=== PATIENT | female | born 1960 | race Caucasian/White ===

== ENCOUNTER → 2017-06-04 | Outpatient (CLI) | payer OTHER ==
[2016-09-11 06:31] VITALS: BP 130/62
--- NOTE | 2017-06-06 08:24 | MRI ---
MRI left knee without contrast Indication: Left knee pain and swelling Technique: Multiplanar, multi sequence imaging of the left knee without IV contrast administration. Findings: The extensor mechanism is intact. The patella demonstrates high chondromalacia of the later al patellar articular cartilage. There is increased lateral tilting of the patella with a hypoplastic femoral trochlear sulcus. The medial and lateral retinacular complexes are intact; however, there is moderate edema within the femoral attachment of the medial patellofemoral ligament for example on co vance image 18 and axial image 14. The tibial tuberosity to trochlear groove distance is 2.2 cm. Smal l suprapatellar joint effusion. There is a small popliteal fossa cyst. The popliteus muscle and tendo n are normal. The pes anserine tendons are also within normal limits. Bone marrow signal is heterogeneous however there is no localizing marrow signal abnormality identifi ed within the left knee. The medial femorotibial compartment demonstrates high-grade near full-thickness cartilage thinning se en within the femoral articular cartilage on sagittal image 18 which measures approximately 10 mm in AP dimension. There is small amount of subchondral bone marrow edema within the medial most aspect of the medial femoral condyle and tibial plateau. Moderate-sized surface osteophytes are noted. The lat eral femorotibial compartment demonstrates diffuse chondral thinning and mild chondromalacia with sma ll surface osteophytes and small amount of subchondral bone marrow edema within the lateral tibial pl ateau. No full-thickness cartilage loss is identified. Additionally there is moderate degenerative ch sharona with subcortical cyst formation within the proximal fibula and tib-fib joint. Mucoid degeneration of the ACL without tear. The PCL is intact. The superficial MCL demonstrates leyda a both deep and superficial to the ligament without thickening of the ligament consistent a grade 2 s prain. There is heterogeneous intermediate signal within the meniscal femoral and tibial ligaments al so consistent with acute sprain. The fibular collateral ligament, biceps femoris and iliotibial band are intact. The medial meniscus demonstrates undersurface irregularity and increased signal within th e posterior horn and body seen best on sagittal image 15 and coronal image 23 suspected to represent ing nondisplaced horizontal tear/severe fraying. The lateral meniscus demonstrates no evidence of men iscal tear. Impression: 1. Grade 2 sprain of the superficial MCL along with acute sprain of the meniscofemoral and meniscotib ial ligaments. 2. Intermediate signal extending to the undersurface of the medial meniscal body and posterior horn m ost consistent with undersurface tear/severe fraying. 3. Moderate medial femorotibial compartment osteoarthrosis with focal high-grade cartilage thinning m easuring approximately 1 cm in AP dimension involving the femoral articular cartilage. 4. Mild patellofemoral and mild to moderate lateral femorotibial compartment osteoarthrosis in additi on to moderate degenerative change of the proximal tib-fib joint. 5. 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 The medial patellofemoral ligament edema and adjacen t subcortical edema within the medial femoral condyle suggests an acute or chronic ligamentous injury . Reported By:
== END | disposition home or self-care (01) ==
LOC: RAD 12:33
PROVIDERS: ATTEND Specialist
DX: M17.12 Unilateral primary osteoarthritis, left knee (principal); Q72.892 Other reduction defects of left lower limb; S83.8X2A Sprain of other specified parts of left knee, initial encounter; X58.XXXA Exposure to other specified factors, initial encounter
CPT/HCPCS: 73721

== ENCOUNTER 2018-02-12 08:12 | Inpatient (IN) ==
[~2018-02-12 08:12] MED LIST: ANCEF 1 GRAM IV PREMIX* 1 G/50 ML BAG IV ONE; D5 LR 1000 ML 1,000 ML IV ONE
[2018-02-12 08:54] VITALS: BMI 32.3
[2018-02-12] MEDS ORDERED: NAROPIN 0.75% EPI ONE (09:06)
[2018-02-12] MEDS ORDERED: FENTANYL INJ 250 mcg ONE (09:06)
[2018-02-12] MEDS ORDERED: FENTANYL INJ 100 mcg ONE ×4 (10:20→11:39)
[2018-02-12] MEDS ORDERED: LR 1000 ML IV 1,000 ML IV ONE (10:44)
[2018-02-12] MEDS ORDERED: DILAUDID INJ ONE ×2 (10:54→12:47)
[2018-02-12] MEDS: BACITRACIN IR PRN ×6 (11:55→12:00)
[2018-02-12] MEDS: NS IRRIGATION IR PRN ×6 (11:55→12:00)
[2018-02-12] MEDS: [UNRECOGNIZED DRUG - OTHER] IR PRN ×6 (11:55→12:00)
[2018-02-12] MEDS ORDERED: NS IV NR ×5 (12:00)
[2018-02-12] MEDS: MORPHINE SULFATE IV NR ×10 (12:00→15:48)
[2018-02-12] MEDS: MARCAINE IV NR ×10 (12:00→15:48)
[2018-02-12] MEDS ORDERED: NS 1000 ML 20 ML, MARCAINE 0.5% 20 ML IV NR ×2 (12:00)
[2018-02-12] MEDS: [UNRECOGNIZED DRUG - OTHER] IV NR ×10 (12:00→15:48)
[2018-02-12] MEDS ORDERED: [UNRECOGNIZED DRUG - OTHER] IV NR ×5 (12:00)
[2018-02-12] MEDS ORDERED: MARCAINE IV NR ×5 (12:00)
[2018-02-12] MEDS ORDERED: MORPHINE SULFATE IV NR ×5 (12:00)
[2018-02-12] MEDS: NS IV NR ×10 (12:00→15:48)
[2018-02-12] MEDS: NS 1000 ML 20 ML, MARCAINE 0.5% 20 ML IV NR ×4 (12:02→15:50)
[2018-02-12] MEDS ORDERED: HYDROGEN PEROXIDE 3% ONE (12:16)
[2018-02-12] MEDS ORDERED: REGLAN INJ 10 MG VIAL IVP PRN (12:45)
[2018-02-12] MEDS ORDERED: BENADRYL INJ 50 MG VIAL IVP PRN (12:45)
[2018-02-12] MEDS ORDERED: ZOFRAN INJ 4 MG VIAL IVP PRN (12:45)
[2018-02-12] MEDS ORDERED: PHENERGAN INJ 25 MG IVP PRN (12:45)
[2018-02-12] MEDS: DILAUDID INJ IVP PRN ×2 (12:50→12:55)
--- NOTE | 2018-02-12 13:25 | RAD ---
History: Postop left total knee Study: Left knee two views Findings: AP and cross-table lateral views of the left knee demonstrate a total knee prosthesis in pl kraig in appropriate alignment. A drain anterior to the distal femur and anterior skin hal are note d Impression: . Recent placement of a left total knee prosthesis. Reported By:
[2018-02-12] MEDS ORDERED: NS 1000 ML 1,000 ML ONE (14:44)
[2018-02-12] MEDS ORDERED: DIPRIVAN VIAL ONE (15:21)
[2018-02-12] MEDS ORDERED: NORCURON INJ 10 MG VIAL ONE (15:21)
[2018-02-12] MEDS ORDERED: XYLOCAINE 2 % (PLAIN) ONE (15:21)
[2018-02-12] MEDS ORDERED: QUELICIN (OR ANECTINE) ONE (15:21)
[2018-02-12] MEDS ORDERED: SUPRANE IN ONE (15:21)
[2018-02-12] MEDS ORDERED: VERSED ONE (15:21)
[2018-02-12] MEDS ORDERED: ROBINUL ONE (15:21)
[2018-02-12] MEDS ORDERED: NEOSTIGMINE INJ ONE (15:21)
[2018-02-12] MEDS ORDERED: ZOFRAN INJ 4 MG VIAL ONE (15:21)
[2018-02-12] MEDS: MORPHINE SULFATE PCA 30 MG IV PRN ×2 (15:38→19:59)
[2018-02-12] MEDS: NS 1000 ML 1,000 ML IV SCH (15:50)
[2018-02-12] MEDS ORDERED: ATIVAN TAB 1 MG ONE (16:39)
[2018-02-12] MEDS: NICOTINE PATCH TD SCH (16:53)
[2018-02-12] MEDS: XANAX PO SCH ×2 (16:53→21:51)
[2018-02-12] MEDS: PERCOCET TAB 5/325 MG PO PRN (17:51)
[2018-02-12] MEDS: LOVENOX INJ 40 MG SYR SC SCH (20:42)
[2018-02-13] MEDS: PERCOCET TAB 5/325 MG PO PRN ×5 (02:05→21:35)
[2018-02-13] MEDS: MORPHINE SULFATE PCA 30 MG IV PRN (03:30)
[2018-02-13] MEDS: XANAX PO SCH ×3 (05:21→21:34)
[2018-02-13 06:16] LABS: BASOPHILS % (AUTO) 0.3 % (0.2-1.0); EOSINOPHILS # (AUTO) 0.1 x10^3/uL (0.0-0.2); EOSINOPHILS % (AUTO) 1.9 % (0.9-2.9); HEMATOCRIT 30.8 % (36.0-47.0); HEMOGLOBIN 10.5 g/dL (12.0-16.0); LYMPHOCYTES # (AUTO) 0.8 X10^3/uL (1.3-2.9); LYMPHOCYTES % (AUTO) 12.7 % (21.0-51.0); MEAN CORPUSCULAR HEMOGLOBIN 31.3 pg (27.0-34.0); MEAN CORPUSCULAR HGB CONC 34.2 g/dL (33.0-35.0); MEAN CORPUSCULAR VOLUME 91.4 fL (80.0-100.0); MEAN PLATELET VOLUME 8.9 fL (7.4-11.0); MONOCYTES # (AUTO) 0.8 x10^3/uL (0.3-0.8); MONOCYTES % (AUTO) 11.9 % (0.0-13.0); NEUTROPHILS # (AUTO) 4.8 x10^3/uL (2.2-4.8); NEUTROPHILS % (AUTO) 73.2 % (42.0-75.0); PLATELET COUNT 178 X10^3/uL (150.0-450.0); RED BLOOD COUNT 3.37 X10^6/uL (3.5-5.4); RED CELL DISTRIBUTION WIDTH 13.5 % (11.6-16.5); WHITE BLOOD COUNT 6.6 X10^3/uL (3.6-10.0)
[2018-02-13 06:27] LABS: BLOOD UREA NITROGEN 10 mg/dL (7-18); CALCIUM 8.6 mg/dL (8.5-10.1); CARBON DIOXIDE 25.7 mmol/L (21-32); CHLORIDE 101 mmol/L (98-107); COR NA(FOR HYPERGLY) 137 mmol/L (136-145); CREATININE 0.92 mg/dL (0.55-1.02); SODIUM 136 mmol/L (136-145); eGFR NON BLACK RACES > 60 (>60)
[2018-02-13] MEDS: NICOTINE PATCH TD SCH (08:10)
[2018-02-13] MEDS: LOVENOX INJ 40 MG SYR SC SCH (08:11)
[2018-02-13] MEDS: NS 1000 ML 1,000 ML IV SCH (08:13)
[2018-02-13] MEDS ORDERED: ULTRAM PO PRN (10:01)
[2018-02-13] MEDS: CELEBREX PO SCH (13:53)
[2018-02-13] MEDS: NEURONTIN CAP 300 MG PO SCH ×3 (13:54→21:34)
--- NOTE | 2018-02-13 20:45 | PCM.PROG ---
Progress Note - Progress Note for Day of Date: 02/13/18 - Subjective Subjective: IS DAY 1 STATUS POST LEFST TOTAL KNEE REPLACEMNT. TODAY, SHE IS ALERT AND ORIENTED, LYING IN BED ON MORNING ROUNDS. SHE IS NOTED WITH COMPLAINTS OF LEFT KNEE PAIN. ON EXAMINATION, HEART IS REGULAR IN RATE AND RHYTHM. BILATERAL LUNGS ARE CLEAR TO AUSCULTATION. ABDOMEN IS ROUND, SOFT, AND NON-TENDER WITH NORMAL BOWEL SOUNDS NOTED IN ALL QUADRANTS. LEFT KNEE IS NOTED WITH A SURGICAL DRESSING, DRY AND INTACT. NO SIGNS OR SX INFECTION NOTED TO SITE. HEMOVAC NOTED. HER VITALS THIS MORNING ARE 99.0-106-16-94%-130/71. LABS WERE OBTAINED. ABNORMAL LAB VALUES INCLUDE THE FOLLOWING: RBC 3.37, HGB 10.5, HCT 30.8, GLUCOSE 137. PHYSICAL THERAPY WILL WORK WITH PATIENT TODAY. 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 WE WILL CONTINUE WITH CURRENT PLAN OF CARE. WILL CONTINUE TO FOLLOW PATIENT WELL. WE PLAN TO FOLLOW UP WITH AM LABS AND CONTINUE TO MONITOR PATIENT. - Past Medical Family Social History Past Med/Fam/Surg Hx: No changes since H&P Allergies: Allergies No Known Drug Allergies Allergy (Verified 02/13/18 09:42) - Review of Systems ROS: No change since H&P - Vital Signs and I&O's Vital Signs: Temperature 97.8 F Pulse Rate [Left Brachial] 116 Pulse Rate 86 Respiratory Rate 20 Blood Pressure [Left Arm] 108/59 Blood Pressure [Right Arm] 130/62 Blood Pressure 106/51 O2 Sat by Pulse Oximetry 97 Intake and Output: Intake & Output 02/11/18 02/12/18 02/13/18 02/14/18 11:59 11:59 11:59 11:59 Intake Total 7000 / 7000 50288 / 64382 1400 / 1400 Output Total 7420 / 7420 30 / 30 Balance 7000 / 7000 3320 / 3320 1370 / 1370 - Physical Exam Oriented: Normal Eyes: Normal Ear: Normal Throat: Normal Respiratory: Normal Cardiovascular: Normal : Normal Auscultation: Bowel Sounds: Normal Palpation: Normal Tenderness: Normal Skin: Wound (SURGICAL WOUND LEFT KNEE ) Musculoskeletal: Left, Knee, Tender Psychiatric: Anxiety Mood Description: Anxious Affect: Normal Speech Pattern: Clear - Laboratory and Diagnostics Result Diagrams: 02/13/18 05:31 02/13/18 05:31 Labs: Laboratory WBC 6.6 X10^3/uL (3.6-10.0) 02/13/18 05:31 RBC 3.37 X10^6/uL (3.5-5.4) L 02/13/18 05:31 Hgb 10.5 g/dL (12.0-16.0) L D 02/13/18 05:31 Hct 30.8 % (36.0-47.0) L 02/13/18 05:31 MCV 91.4 fL (80.0-100.0) 02/13/18 05:31 MCH 31.3 pg (27.0-34.0) 02/13/18 05:31 MCHC 34.2 g/dL (33.0-35.0) 02/13/18 05:31 RDW 13.5 % (11.6-16.5) 02/13/18 05:31 Plt Count 178 X10^3/uL (150.0-450.0) 02/13/18 05:31 MPV 8.9 fL (7.4-11.0) 02/13/18 05:31 Neut % (Auto) 73.2 % (42.0-75.0) 02/13/18 05:31 Lymph % (Auto) 12.7 % (21.0-51.0) L 02/13/18 05:31 [place] % (Auto) 11.9 % (0.0-13.0) 02/13/18 05:31 Eos % (Auto) 1.9 % (0.9-2.9) 02/13/18 05:31 Baso % (Auto) 0.3 % (0.2-1.0) 02/13/18 05:31 Neut # (Auto) 4.8 x10^3/uL (2.2-4.8) 02/13/18 05:31 Lymph # (Auto) 0.8 X10^3/uL (1.3-2.9) L 02/13/18 05:31 [place] # (Auto) 0.8 x10^3/uL (0.3-0.8) 02/13/18 05:31 Eos # (Auto) 0.1 x10^3/uL (0.0-0.2) 02/13/18 05:31 Baso # (Auto) 0.0 X10^3/uL (0.0-0.1) 02/13/18 05:31 Absolute Nucleated RBC 0.0 /100WBC 02/13/18 05:31 Sodium 136 mmol/L (136-145) 02/13/18 05:31 Corrected Sodium 137 mmol/L (136-145) 02/13/18 05:31 Potassium 4.1 mmol/L (3.5-5.1) 02/13/18 05:31 Chloride 101 mmol/L (98-107) 02/13/18 05:31 Carbon Dioxide 25.7 mmol/L (21-32) 02/13/18 05:31 BUN 10 mg/dL (7-18) 02/13/18 05:31 Creatinine 0.92 mg/dL (0.55-1.02) 02/13/18 05:31 Est GFR (MDRD) Af Amer > 60 (>60) 02/13/18 05:31 Est GFR (MDRD) Non-Af > 60 (>60) 02/13/18 05:31 Glucose 137 mg/dL (65-99) H 02/13/18 05:31 Calcium 8.6 mg/dL (8.5-10.1) 02/13/18 05:31 - Plan (1) Status post total left knee replacement Status: Acute Plan: PHYSICAL THERAPY, WOUND CARE, PAIN CONTROL, CONTINUE TO MONITOR
[2018-02-13] MEDS ORDERED: SEROquel XR TAB 400 MG PO SCH (21:00)
[2018-02-13] MEDS ORDERED: PATIENT'S HOME MEDICATION PO SCH (21:00)
[2018-02-14] MEDS: PERCOCET TAB 5/325 MG PO PRN ×2 (04:15→13:06)
[2018-02-14 05:28] LABS: BASOPHILS % (AUTO) 0.4 % (0.2-1.0); EOSINOPHILS # (AUTO) 0.1 x10^3/uL (0.0-0.2); EOSINOPHILS % (AUTO) 1.7 % (0.9-2.9); HEMATOCRIT 26.6 % (36.0-47.0); HEMOGLOBIN 9.4 g/dL (12.0-16.0); LYMPHOCYTES # (AUTO) 0.9 X10^3/uL (1.3-2.9); LYMPHOCYTES % (AUTO) 14.6 % (21.0-51.0); MEAN CORPUSCULAR HEMOGLOBIN 32.2 pg (27.0-34.0); MEAN CORPUSCULAR HGB CONC 35.2 g/dL (33.0-35.0); MEAN CORPUSCULAR VOLUME 91.4 fL (80.0-100.0); MEAN PLATELET VOLUME 8.8 fL (7.4-11.0); MONOCYTES # (AUTO) 0.8 x10^3/uL (0.3-0.8); MONOCYTES % (AUTO) 12.4 % (0.0-13.0); NEUTROPHILS # (AUTO) 4.5 x10^3/uL (2.2-4.8); NEUTROPHILS % (AUTO) 70.9 % (42.0-75.0); PLATELET COUNT 164 X10^3/uL (150.0-450.0); RED BLOOD COUNT 2.91 X10^6/uL (3.5-5.4); RED CELL DISTRIBUTION WIDTH 13.7 % (11.6-16.5); WHITE BLOOD COUNT 6.3 X10^3/uL (3.6-10.0)
[2018-02-14] MEDS: XANAX PO SCH ×2 (05:41→14:00)
[2018-02-14 05:56] LABS: BLOOD UREA NITROGEN 10 mg/dL (7-18); CALCIUM 8.6 mg/dL (8.5-10.1); CARBON DIOXIDE 25.8 mmol/L (21-32); CHLORIDE 104 mmol/L (98-107); COR NA(FOR HYPERGLY) 139 mmol/L (136-145); CREATININE 0.85 mg/dL (0.55-1.02); SODIUM 138 mmol/L (136-145); eGFR NON BLACK RACES > 60 (>60)
[2018-02-14] MEDS: NS 1000 ML 1,000 ML IV SCH ×2 (07:21→10:41)
[2018-02-14] MEDS: CELEBREX PO SCH (09:00)
[2018-02-14] MEDS: NEURONTIN CAP 300 MG PO SCH ×2 (09:00→14:00)
[2018-02-14] MEDS: NICOTINE PATCH TD SCH (09:01)
[2018-02-14] MEDS: LOVENOX INJ 40 MG SYR SC SCH (09:46)
[2018-02-14 12:29] VITALS: BP 121/54
[2018-02-14] MEDS ORDERED: NYSTATIN POWDER ONE (14:43)
[2018-02-14] MEDS ORDERED: NYSTATIN POWDER TOP SCH (15:00)
--- NOTE | 2018-02-18 10:24 | OR.GENERIC ---
Post-Op Note Generic - Post-Op Note Operative Report: PREOPERATIVE DIAGNOSIS: Degenerative arthritis of the left knee. POSTOPERATIVE DIAGNOSIS: Degenerative arthritis of the left knee. PROCEDURE PERFORMED: LEFT TOTAL KNEE ARTHROPLASTY DATE OF SURGERY-02/12/18 BLOOD LOSS: 150 cc. ANESTHESIA: General. IMPLANT USED FOR PROCEDURE: John Paul Triathlon size 4 femur on the left with #4 size peg tibial tray, a #11 mm polyethylene insert and this a Posterior stabilized component. 29 size patella. GROSS INTRAOPERATIVE FINDINGS: Degenerative blanton of three compartments of the trochlea, the medial, as well as the lateral femoral condyles as well was the plateau. HISTORY: This is a 57-year-old female with complaints of left knee pain for several years and increased intensity in the past several months where it has affected her activities of daily living. She attempted conservative treatment, which includes anti-inflammatory medications as well as cortisone and Synvisc. This has only provided her with temporary relief. It is for that reason, she elected to undergo the above-named procedure.past history was si for extensor mechanism failure. She reports she had what N rupture which was treated with the sutures passed through. All risks as well as complications were discussed with the patient, which include, but are not limited to infection, deep vein thrombosis, pulmonary embolism, need for further surgery, and further pain. she has agreed to undergo this procedure and a consent was obtained preoperatively. PROCEDURE: The patient was wheeled back to operating room and was placed supine on the operating room table. At this time, a nonsterile tourniquet was placed on the left upper thigh, but not inflated. An Esmarch was then used to exsanguinate the extremity and the left extremity was then prepped and draped in the usual sterile fashion for this procedure. The tourniquet was then inflated to 325 mmHg. At this time, a standard midline incision was made. medial parapatellar arthrotomy was completed. medial release of proximl tibia, fat pad excision, ant femoral synovium excision was ompleted. Medail and lateral meniscua and ACL and PCL was excised.the patella was everted. At this time with a better exposure of the proximal tibia, we placed external tibial guide. This was placed with longitudinal axis of the tibia and carefully positioned in order to obtain an optimal cut for the proximal tibia. At this time with careful soft tissue retraction and protection, an oscillating saw was used to make a proximal tibial osteotomy. Prior to the osteotomy, the cut was checked with a depth gauge in order to assure appropriate bony resection. At this time, I then used a drill to cannulate the distal femoral canal in order to place the intramedullary guide. Distal femroal osteotomy was completed. siz 4 femur was determined. Epicondylar axis was determined. 4 in 1 block placed and bone cuts complted. posterior osteophytes removed with osteotome and curette. box cut finished. The block was then removed and an osteotome was then used to remove all the bony cut pieces. Once this was removed, we then implanted our trial components of size 4 to the femur and a size 4 mm tibial tray with 11 mm plastic articulating surface. The knee was taken through range of motion and revealed excellent femorotibial articulation. The patella was prepared free hand and its inital thickness maintained. At this time, the prosthesis was removed. A Haylie retractor was then reinserted and replaced peg tibial tray in order to peg the proximal tibia. Once the drill holes were performed, we then copiously irrigated the wound and then suctioned it dry to get ready and prepped for cementation of the drilled components. At this time, polymethyl methacrylate cement was then mixed. The cement was placed on the tibial surface as well as the underneath surface of the component. The component was then placed and impacted with excess cement removed. In a similar fashion, the femoral and atellar component was also placed. A 11 mm plastic tray was then placed and the leg held in full extension and compression in order to obtain adequate bony cement content. Once the cement was fully hardened , the knee was flexed and a small osteotome was used to remove any extruding cement from around the prosthesis of the bone. Once this was performed, copious irrigation was used to irrigate the wound and the wound was then suctioned dry. We decided to go with a #11 mm polyethylene tray. At this time, this was placed to the tibial articulation and then left in place. This was rechecked with careful attention to detail with checking no soft tissue interpositioned between the polyethylene tray and the metal tray of the tibia. The knee was again taken through range of motion and revealed minimal lateral tracking of the patella with good femur and tibial contact.a lateral release was performed. A drain was placed and cut to length. At this time, the knee was irrigated and copiously suction dried. #1-0 Ethibond suture was then used to approximate the medial parapatellar arthrotomy in figure -of-eight fashion. A tight capsular closure was performed. This was reinforced with a #1-0 running Vicryl suture. At this time, the knee was again taken through range of motion to assure tight capsular closure. At this time, copious irrigation was used to irrigate the superficial wound. #2-0 Vicryl was used to approximate the wound with [id number] inverted suture. The skin was then approximated with hal. The leg was then cleansed. Sterile dressing consisting of Adaptic, 4x4, ABDs, and Kerlix roll were then applied. At this time, the patient was extubated and transferred to recovery in stable condition. Prognosis is good for this patient.post op xrays were satisfactory.
--- NOTE | 2018-03-12 00:17 | DR.CARTERD ---
- Discharge Summary for: Discharge Summary for Date of:: 02/14/18 - Admission Date Date of Admission: 02/12/18 - Admission Diagnoses Admission Diagnosis: (1) Status post total left knee replacement (2) Left knee pain - Discharge Date Discharge Date: 02/14/18 - Discharge Diagnoses Discharge Diagnosis: (1) Status post total left knee replacement (2) Left knee pain - Hospital Course Hospital Course: MS. PICHARDO IS A 57 YEAR OLD WHO WAS ADMITTED FOR A LEFT TOTAL KNEE ARTHROPLASTY PER DR. CLAY. PATIENT HAD SEEN DR. BRIJESH ROWLAND IN THE PAST. SHE WAS DIAGNOSED WITH LEFT KNEE OSTEOARTHRITIS. PATIENT HAS TRIED AND FAILED CONSERVATIVE MANAGEMENT. SHE HAD TRIED MULTIPLE CORTISONE INJECTIONS, WELL SYNVISC INJECTIONS. PATIENT HAS ALSO TRIED OTHER CONSERVATIVE MANAGEMENT IN THE FORM OF PHYSICAL THERAPY, BRACES, WAKING AIDS WITHOUT BENEFIT. THE PATIENT HAD DEBILITATING PAIN AND NEEDED HELP WITH ACTIVITIES OF DAILY LIVING. PATIENT WAS TAKEN TO SURGERY ON DAY ONE AND TOLERATED PROCEDURE WELL. DAY TWO, PATIENT WAS POST OP DAY ONE FOR LEFT TOTAL KNEE REPLACEMNT. SHE WAS ALERT AND ORIENTED, LYING IN BED ON MORNING ROUNDS. SHE WAS NOTED WITH COMPLAINTS OF LEFT KNEE PAIN. ON EXAMINATION, HEART WAS REGULAR IN RATE AND RHYTHM. BILATERAL LUNGS WERE CLEAR TO AUSCULTATION. ABDOMEN WAS ROUND, SOFT, AND NON-TENDER WITH NORMAL BOWEL SOUNDS NOTED IN ALL QUADRANTS. LEFT KNEE WAS NOTED WITH A SURGICAL DRESSING, DRY AND INTACT. NO SIGNS OR SX INFECTION NOTED TO SITE. HEMOVAC NOTED. HER VITALS WERE 99.0-106-16-94%-130/71. LABS WERE OBTAINED. ABNORMAL LAB VALUES INCLUDED THE FOLLOWING: RBC 3.37, HGB 10.5, HCT 30.8, GLUCOSE 137. PHYSICAL THERAPY BEGAN WORKING WITH PATIENT. 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 CONTINUED TO FOLLOW PATIENT WELL. DAY THREE, PATIENT WAS DOING WELL. PATIENT WAS PARTICIPATING WELL WITH PHYSICAL THERAPY AND WAS AMBULATING WELL. DRESSING WAS DRY AND INTACT. DR. VALDOVINOS RELEASED PATIENT FOR DISCHARGE. VITAL SIGNS STABLE. LABS WNL. PATIENT REPORTED SHE FELT GOOD AND PAIN WAS TOLERABLE WITH ORAL PAIN MEDICATION. WE PLANNED FOR DISCHARGE. INSTRUCTIONS FOR MEDICATIONS AND FOLLOW UP WERE DISCUSSED WITH PATIENT AND FAMILY, BOTH VOICED UNDERSTANDING. PATIENT DISCHARGED HOME IN STABLE CONDITION WITH FAMILY. - Discharge Medications Discharge Medications: Home Medication List alprazolam [Xanax] 2 mg PO TID 02/12/18 [History] levothyroxine 125 mg PO DAILY 02/12/18 [History] oxycodone 30 mg PO DAILY PRN 02/12/18 [History] quetiapine 800 mg PO HS 02/12/18 [History] ranitidine HCl 150 mg PO BID 02/12/18 [History] enoxaparin [Lovenox] 40 mg SUB-Q DAILY #17 ml 02/14/18 [Rx] Prescriptions: enoxaparin [Lovenox] Herrera Santos Bobby - Discharge Disposition Discharge Disposition: PATIENT IS TO FOLLOW UP WITH DR. VALDOVINOS IN ONE WEEK AND WITH DR. BRITT MATAMOROS IN ONE WEEK.
== END 2018-02-14 15:15 | disposition home health service (06) | DRG 470 ==
LOC: MED/SURG 08:12
PROVIDERS: ADMIT Orthopaedic Surgery; ATTEND Internal Medicine
DX: M17.12 Unilateral primary osteoarthritis, left knee; R26.89 Other abnormalities of gait and mobility; E78.2 Mixed hyperlipidemia; F32.89 Other specified depressive episodes; F41.8 Other specified anxiety disorders
CPT/HCPCS: 36415; 64447; 73560; 80048; 85025; 94762; 97110; 97162; 97166; 97530; 97535; A4222; J0330; J0690; J1170; J1650; J2250; J2271; J2405; J2704; J2710; J2795; J3010; J3490; J7030; J7120; J7121